=== PATIENT | female | born 1995 | race Caucasian/White ===

== ENCOUNTER → 2023-12-02 11:28 | Outpatient (REF) | payer OTHER, SELFPAY | LOC: PNTC 11:28 | PROVIDERS: ATTENDING PHYSICIAN Obstetrics & Gynecology | DX: O10.119 Pre-existing hypertensive heart disease complicating pregnancy, unspecified trimester (principal) | CPT/HCPCS: 76801; 76813 ==

== ENCOUNTER → 2024-01-27 08:57 | Outpatient (REF) | payer OTHER, SELFPAY | LOC: PNTC 08:57 | PROVIDERS: ATTENDING PHYSICIAN Obstetrics & Gynecology | DX: O10.119 Pre-existing hypertensive heart disease complicating pregnancy, unspecified trimester (principal); O09.899 Supervision of other high risk pregnancies, unspecified trimester | CPT/HCPCS: 76811 ==

== ENCOUNTER 2024-06-04 00:57 | Inpatient (IN) | payer OTHER, SELFPAY ==
[2024-06-04 01:08] VITALS: BMI 28.7
[2024-06-04 01:35] VITALS: BP 124/88
[2024-06-04 01:45] LABS: % Basophils 0.4 % (0-2); % Eosinophils 1.2 % (0-6); % Immature Granulocytes 1.2 % (0-0.5); % Lymphocytes 25.5 % (20.5-51.1); % Monocytes 8.8 % (1.7-9.3); % Neutrophils 62.9 % (42.2-75.2); Absolute Basophils 0.1 10^3/uL (0-0.2); Absolute Eosinophils 0.1 10^3/uL (0-0.7); Absolute Immature Granulocytes 0.1 10^3/uL (0-0.05); Absolute Lymphocytes 2.9 10^3/uL (1.2-3.4); Absolute Neutrophils 7.2 10^3/uL (1.4-6.5); Hematocrit 38.6 % (37.0-47.0); Hemoglobin 13.3 g/dL (12.0-16.0); Mean Corp Hgb Conc. 34.5 g/dL (33.0-37.0); Mean Corpuscular Hgb 30.2 pg (27.0-31.0); Mean Corpuscular Volume 87.5 fL (81.0-99.0); Mean Platelet Volume 9.1 fL (7.4-10.4); Nucleated Red Blood Cells % 0 %; Platelet Count 279 10^3/uL (130-400); Red Blood Cell Count 4.41 10^6/uL (4.20-5.40); Red Cell Dist. Width 13.1 % (11.5-14.5); White Blood Cell Count 11.5 10^3/uL (4.8-10.8)
[2024-06-04] MEDS: SUBLIMAZE 100 MCG EPIDURAL (04:56)
[2024-06-04] MEDS: FENTANYL/BUPIVACAINE 100 EPIDURAL (04:56)
[2024-06-04] MEDS: PITOCIN 30 UNITS/NSS 500 ML IV (05:47)
[2024-06-04] MEDS: PRENATAL PLUS 1 TABLET PO (12:06)
[2024-06-04] MEDS: MOTRIN 600 MG PO (20:16)
[2024-06-05] MEDS: MOTRIN 600 MG PO ×3 (02:32→16:25)
[2024-06-05 04:35] LABS: Hematocrit 36.3 % (37.0-47.0); Hemoglobin 12.3 g/dL (12.0-16.0)
[2024-06-05] MEDS: PRENATAL PLUS 1 TABLET PO (09:14)
[2024-06-05] MEDS: SENOKOT-S 1 TABLET PO (09:14)
[2024-06-05 13:48] LABS: Syphilis/T. pallidum Ab Reflex Negative (Negative)
[2024-06-05] MEDS: TYLENOL 650 MG PO (19:29)
[2024-06-06] MEDS: MOTRIN 600 MG PO ×2 (00:14→09:02)
[2024-06-06] MEDS: PRENATAL PLUS 1 TABLET PO ×2 (09:02→09:03)
[2024-06-06] MEDS: SENOKOT-S 1 TABLET PO (09:02)
== END 2024-06-06 12:30 | disposition home or self-care (01) | DRG 807 ==
LOC: LDRP 00:57
PROVIDERS: ADMITTING PHYSICIAN Obstetrics & Gynecology; ATTENDING PHYSICIAN Obstetrics & Gynecology; FAMILY PHYSICIAN Family Medicine
PROC: 4A1HXCZ Monitoring of Products of Conception, Cardiac Rate, External Approach (ICD-10-PCS; 2024-06-04)
PROC: 10E0XZZ Delivery of Products of Conception, External Approach (ICD-10-PCS; 2024-06-04)
DX: O99.344 Other mental disorders complicating childbirth (principal); Z37.0 Single live birth; F41.9 Anxiety disorder, unspecified; Z3A.39 39 weeks gestation of pregnancy
CPT/HCPCS: 36415; 85014; 85018; 85025; 86780; 86850; 86900; 86901